=== PATIENT | male | born 1980 | race Caucasian/White ===

== ENCOUNTER 2022-02-23 19:17 | Emergency (ER) | payer OTHER ==
[2022-02-23 20:42] LABS: BILIRUBIN 1+ mg/dL (NEGATIVE); BLOOD 2+ Ery/uL (NEGATIVE); CLARITY HAZY (CLEAR); COLOR YELLOW (YELLOW); GLUCOSE (U) NORMAL (NORMAL); LEUKOCYTES 2+ Leu/uL (NEGATIVE); NITRITE POSITIVE (NEGATIVE); PROTEIN 2+ mg/dL (NEGATIVE); SPECIFIC GRAVITY 1.025 (1.001-1.030)
[2022-02-23 20:48] LABS: BACTERIA 2+; MUCOUS MODERATE; URINARY WBC TNTC
[2022-02-23 21:38] LABS: BASOPHIL 0.3 % (0-2); EOSINOPHIL 0.4 % (0-5); HCT 38.2 % (42.0-52.0); HGB 12.7 g/dl (13.2-18.0); MCH 26.3 pg (25.0-31.0); MCHC 33.2 g/dL (32.0-36.0); MCV 79.3 fL (78.0-100.0); MPV 8.4 fL (6.0-9.5); NEUTROPHIL 67.9 % (41-80); NRBC 0; PLT 237 K/uL (150-400); RBC 4.82 M/uL (4.70-6.00); RDW 13.6 % (11.5-14.0); WBC 9.6 K/uL (4.0-10.5)
[2022-02-23 21:57] LABS: ALBUMIN 3.2 g/dL (3.4-5.0); BILIRUBIN - TOTAL 0.8 mg/dL (0.2-1.0); BUN/CREAT RATIO (CALC) 20.7 RATIO; CREATININE 0.87 mg/dL (0.67-1.17); GLOBULIN (CALCULATION) 4.8 g/dL; POTASSIUM 3.6 mmol/L (3.5-5.1)
[2022-02-23 22:08] LABS: LACTIC ACID 0.7 mmol/L (0.4-1.9)
[2022-02-23] MEDS ORDERED: VIBRAMYCIN100 MG PO (22:37)
[2022-02-26 16:10] LABS: CHLAMYDIA TRACHOMATIS, NAA Negative (Negative); NEISSERIA GONORRHOEAE, NAA Negative (Negative)
== END 2022-02-23 23:03 | disposition home or self-care (01) ==
LOC: FER 19:17
PROVIDERS: Emergency Medicine
DX: N45.1 Epididymitis (principal); Z88.0 Allergy status to penicillin; Z88.2 Allergy status to sulfonamides; W01.0XXA Fall on same level from slipping, tripping and stumbling without subsequent striking against object, initial encounter; Y92.89 Other specified places as the place of occurrence of the external cause
CPT/HCPCS: 36415; 76870; 80053; 81001; 83605; 85025; 87040; 87076; 87088; 87186; 87491; 87591; J0696; J7030